=== PATIENT | female | born 1965 | race Caucasian/White ===

== ENCOUNTER 2017-06-11 05:40 | Day surgery (SDC) | payer OTHER ==
[~2017-06-11] VITALS: Ht 170.2 cm; Wt 77.1 kg
[~2017-06-11 05:40] MED LIST: BUTALBIT-ACETA1 EACH PO; NORTRIPTYLINE H50 MG PO; PROPRANOLOL HCL40 MG PO; SERTRALINE HCL100 MG PO; SYNTHROID50 MCG PO; VENTOLIN HFA18 GM INH
--- NOTE | 2017-06-11 08:35 | NUR ---
06/11/17 0835 Lynda Calvo 0819 PT REACTIVE, MAINTAINING OWN AIRWAY ON 10L VIA MASK. PT REORIENTED TO PACU AND THEN BACK TO SLEEP. 0823 PT DENIES PAIN AND NAUSEA. O2 MASK REMOVED, O2 SAT 100%.
--- NOTE | 2017-06-11 09:10 | NUR ---
PT ARRIVES TO RM 5 FROM RECOVERY AWAKE, ALERT AND ORIENTED. PT FRIEND, HUBER, IN RM ON ARRIVAL. PT PROVIDED ICED WATER. VS OBTAINED. PT REPORTS FEELING THE URGE TO VOID. PT AMBULATES TO BR WITH RN ASSIST AND VOIDS 100 MLS RED URINE WITH NO PROBLEMS. PT TOLERATES PO WELL. SECOND CUP OF ICED WATER PROVIDED AND PUDDING. CALL LIGHT W/IN REACH. NO C/O'S AT THIS TIME.
[2017-06-11] MEDS ORDERED: CIPRO500 MG PO (09:29)
--- NOTE | 2017-06-11 10:19 | NUR ---
DC CRITERIA MET. PT AGREES SHE IS READY TO GO HOME. DC INSTRUCTIONS GIVEN IN PRESENCE OF PT AND FRIEND, HUBER. PT VERBALIZES AN UNDERSTANDING OF DC INSTRUCTIONS. ABX SCRIPT GIVEN TO PT. FRIEND RETRIEVES VEHICLE WHILE VOLUNTEER, LAKHWINDER TRANSPORTS PT FROM RM 5 VIA WHEELCHAIR.
--- NOTE | 2017-06-15 14:06 | OR ---
[facility] [address] [facility] [place], [place] [address] Signed DATE OF OPERATION: 06/11/2017 SURGEON: Aimee Ro MD PREOPERATIVE DIAGNOSIS: Severe overactive bladder. POSTOPERATIVE DIAGNOSIS: Severe overactive bladder. NAME OF PROCEDURES: 1. Urethral dilation with straight sounds, from 12-South Sudanese to 22-South Sudanese. 2. Diagnostic cystoscopy with Botox bladder injection, 100 units. ANESTHESIA: General. ESTIMATED BLOOD LOSS: None. COMPLICATIONS: None. SPECIMENS: None. DRAINS: None. INDICATIONS FOR PROCEDURE: Janay is a very pleasant 52-year-old female, who presented to my clinic approximately a month ago with complaints of severe urinary urgency, frequency, and bouts of urge incontinence that resulted in loss of significant amount of urine during each episode. She tried anticholinergic medications in the past, however, she could not tolerate medications due to severe dry mouth. On her last office visit, she was given information on Botox bladder injection and after discussion of the risks and benefits of the procedure, she has agreed to proceed with Botox injection of 100 units. OPERATIVE FINDINGS: 1. On cystoscopy, there was no evidence of any suspicious masses, lesions, or stones Electronically Signed By: AIMEE RO MD 06/15/17 1406 PATIENT NAME: JANAY ANDERSON OPERATIVE REPORT DATE OF : 65 REPORT #: [id number] PHYSICIAN: AIMEE RO MD PCP: RADHA CUBA PAC REPORT IS CONFIDENTIAL AND NOT TO BE RELEASED WITHOUT AUTHORIZATION [facility] [address] [place], [place] [address] Signed within the bladder. Bilateral ureteral orifices are in their normal anatomic location. 2. A total of 100 units of botulinum toxin was injected into the detrusor muscle of the bladder in approximately 20 mL of saline solution. The procedure was performed without difficulty. DESCRIPTION OF PROCEDURE: After informed consent was obtained, the patient was taken back to the operating room. She was transferred from [facility] to the operating room table, where general anesthesia was induced. She was placed in the dorsal lithotomy position and her genitalia prepped and draped in the standard sterile fashion. Examination of the urethral meatus revealed a diminutive urethra. Her urethra was dilated from 12-South Sudanese to 22-South Sudanese using a straight sounds without difficulty. Once dilation was completed, a rigid cystoscope was inserted through the urethra and into her bladder under direct visualization. Panendoscopic views of the bladder were then obtained. Please see the findings. Once I noted the location of the bilateral orifices, I initiated injection of the Botox and saline solution using a 3 mm [employer] needle. 0.5 mL aliquots were injected into the bladder wall a total of 22 times. I avoided the dome and trigone areas of the bladder per protocol. The injections were performed without difficulty. Once I completed the injections, I irrigated the patient's bladder and then drained the bladder via the rigid sheath. The procedure was then terminated. The patient tolerated the procedure well without any complication. She will now be transferred to the postanesthesia care unit in stable condition. DISPOSITION: I discussed the details of today's procedure with Janay's partner and answered all of her questions. She will be sent home with Cipro 500 mg p.o. b.i.d. for a total of 5 days. She will be placed to return to clinic in approximately 6 weeks to undergo her first postoperative evaluation. MD ASHVIN Garzon/JACIL /[id number] Copies: Electronically Signed By: AIMEE RO MD 06/15/17 1406 PATIENT NAME: JANAY ANDERSON OPERATIVE REPORT DATE OF : 65 REPORT #: [id number] PHYSICIAN: AIMEE RO MD PCP: RADHA CUBA PAC REPORT IS CONFIDENTIAL AND NOT TO BE RELEASED WITHOUT AUTHORIZATION [facility] [address] [place] [id number] Signed ~ Electronically Signed By: AIMEE RO MD 06/15/17 1406 PATIENT NAME: JANAY ANDERSON OPERATIVE REPORT DATE OF : 65 REPORT #: [id number] PHYSICIAN: AIMEE RO MD PCP: RADHA CUBA PAC REPORT IS CONFIDENTIAL AND NOT TO BE RELEASED WITHOUT AUTHORIZATION
== END 2017-06-11 10:15 | disposition home or self-care (01) ==
LOC: OPS 05:40 → DS 05:40 → OPS 06:45 → DS 10:45 → OPS 10:45
PROVIDERS: Urology
PROC: 3E0K8GC Introduction of Other Therapeutic Substance into Genitourinary Tract, Via Natural or Artificial Opening Endoscopic (ICD-10-PCS; principal; 2017-06-11 06:45)
DX: N32.81 Overactive bladder (principal); N39.46 Mixed incontinence; G89.29 Other chronic pain; M54.5 Low back pain; K21.9 Gastro-esophageal reflux disease without esophagitis; I10 Essential (primary) hypertension; M19.90 Unspecified osteoarthritis, unspecified site; E03.9 Hypothyroidism, unspecified; F32.9 Major depressive disorder, single episode, unspecified; G43.909 Migraine, unspecified, not intractable, without status migrainosus; Z88.1 Allergy status to other antibiotic agents; Z88.6 Allergy status to analgesic agent; Z88.8 Allergy status to other drugs, medicaments and biological substances; Z79.899 Other long term (current) drug therapy
CPT/HCPCS: 00910; J0330; J0585; J1100; J1956; J2250; J2405; J2704; J2765; J3010; J7120

== ENCOUNTER 2017-07-31 13:53 | Emergency (ER) | payer OTHER ==
[~2017-07-31] VITALS: Ht 170.2 cm; Wt 77.1 kg
[~2017-07-31 13:53] MED LIST changes: +CIPRO500 MG PO
== END 2017-07-31 15:20 | disposition home or self-care (01) ==
LOC: ED 13:53
PROC: 2W3DX1Z Immobilization of Left Lower Arm using Splint (ICD-10-PCS; principal; 2017-07-31)
DX: S02.2XXA Fracture of nasal bones, initial encounter for closed fracture (principal); S63.502A Unspecified sprain of left wrist, initial encounter; Z88.6 Allergy status to analgesic agent; Z88.1 Allergy status to other antibiotic agents; Z79.899 Other long term (current) drug therapy; W18.43XA Slipping, tripping and stumbling without falling due to stepping from one level to another, initial encounter; Y93.89 Activity, other specified; Y92.89 Other specified places as the place of occurrence of the external cause; Y99.0 Civilian activity done for income or pay
CPT/HCPCS: 29125; 70160; 73110; 99283

== ENCOUNTER 2018-04-08 06:00 | Day surgery (SDC) | payer OTHER ==
[~2018-04-08] VITALS: Ht 170.2 cm; Wt 79.4 kg
[~2018-04-08 06:00] MED LIST changes: +BUTALB-ACETAMI1 EACH PO; +MYRBETRIQ50 MG PO
--- NOTE | 2018-04-08 08:38 | NUR ---
04/08/18 0838 Mona,Lynda 0889 PT ARRIVED TO PACU WITH ORAL AIRWAY IN PLACE, RESP EVEN AND UNLABORED. PT NONAROUSABLE TO PAINFUL STIMULI.
--- NOTE | 2018-04-08 09:11 | NUR ---
PT IS AWAKE UPON RETURNING TO FROM PACU. SHE IS ABLE TO DRINK WATER WITHOUT N/V. SHE REPORTS FEELING LIKE SHE NEEDS TO USE THE RESTROOM. DC CRITERIA IS DISCUSSED WITH PT. CALL LIGHT WITHIN REACH. NO OTHER C/O'S AT THIS TIME. WILL REASSESS.
--- NOTE | 2018-04-08 09:20 | NUR ---
PT IS ASSISTED UP OUT OF BED TO THE RESTROOM. SHE AMBULATES HERSELF WITH STANDBY ASSIST. SHE IS ABLE TO VOID 75ML'S OF PINKISH YELLOW URINE. SHE IS ESCORTED BACK TO HER ROOM AND GIVEN MORE WATER AND JELLO.
--- NOTE | 2018-04-08 10:10 | NUR ---
PT'S SIGNIFICANT OTHER AT THE BEDSIDE. PT HAS NO C/O'S PAIN. SHE REPORTS NEEDING TO USE THE RESTROOM. SHE ABMULTAES HERSELF WITHOUT ASSITANCE. CALL LIGHT WITHIN REACH.
--- NOTE | 2018-04-08 10:27 | NUR ---
PT HAS MET ALL DC CRITERIA. SHE INDICATES THAT SHE WOULD LIKE TO GO HOME. SHE IS EDUCATED HOW TO BEST DRESS HERSELF. SHE OPENS HER CURTAIN WHEN READY. SHE IS GIVEN VERBAL DC INSTRUCTIONS, SHE AND HER SIGNIFICANT OTHER VERBALIZE UNDERSTANDING. SHE IS TAKEN TO THE VEHICLE VIA WC, WHERE SHE IS ABLE TO TRANSFER HERSELF TO THE VEHICLE.
--- NOTE | 2018-04-10 18:42 | OR ---
[facility] [address] [place], [place] [address] Signed DATE OF OPERATION: 04/08/2018 SURGEON: Aimee Ro MD PREOPERATIVE DIAGNOSIS: Severe overactive bladder. POSTOPERATIVE DIAGNOSIS: Severe overactive bladder. PROCEDURE PERFORMED: Diagnostic cystoscopy with Botox bladder injection, 200 units. ANESTHESIA: MAC. ESTIMATED BLOOD LOSS: Minimal. COMPLICATIONS: None. SPECIMENS: None. DRAINS: None. INDICATIONS FOR PROCEDURE: Ms. Anderson is a very pleasant 52-year-old female who is well known to me. She has a history of severe overactive bladder symptoms that have never responded to oral pharmacotherapy in the past. Around six months ago, she underwent cystoscopy with Botox bladder injection of 200 units and her symptoms responded quite nicely to this. She has experienced one urinary tract infection since injection of 200 units. Otherwise, she has not had any complaints. She presents today to undergo repeat therapy in the form of Botox bladder injection of 200 units. OPERATIVE FINDINGS: 1. On cystoscopy, there was no evidence of any suspicious masses, lesions, or stones. Bilateral ureteral orifices were in their normal anatomic location and effluxing clear Electronically Signed By: AIMEE RO MD 04/10/18 1842 PATIENT NAME: ODETTE ANDERSON OPERATIVE REPORT DATE OF : 65 REPORT #: [id number] PHYSICIAN: AIMEE RO MD PCP: RADHA CUBA PAC REPORT IS CONFIDENTIAL AND NOT TO BE RELEASED WITHOUT AUTHORIZATION [facility] [address] [facility] [place], [place] [address] Signed urine. 2. A total of 200 units of botulinum toxin was injected into the patient's bladder in 1 mL aliquots. The procedure was performed without difficulty, and there was no significant bleeding associated with injections. DESCRIPTION OF PROCEDURE: After informed consent was obtained, the patient was taken back to the operating room. She was transferred from the [facility] to the operating room table, where MAC anesthesia was induced. She was placed in the dorsal lithotomy position and her genitalia were prepped and draped in a standard sterile fashion. Using a 30-degree lens on a 22-1/2-Uzbek introducer, rigid cystoscope was inserted through urethra and into her bladder under direct visualization. Panendoscopic views of the bladder were then obtained including the lateral day, floor, dome, and trigone areas. Please see above findings. The [employer] injector was advanced through the cystoscope and into the patient's bladder. The needle was then brought to a 3 mm length. The injections were then performed, with 1 mL of reconstituted Botox being injected each time. The posterior and bilateral day of the patient's bladder were injected including areas just superior to the trigone. Overall, I avoided injections in both the trigone and dome areas of the bladder. The entire reconstitute solution of 200 units of botulinum toxin was injected. Once the procedure was completed, the patient's bladder was then drained and the cystoscope was removed. The procedure was terminated. The patient tolerated the procedure well without any complication. She will now be transferred to the postanesthesia care unit in stable condition. DISPOSITION: I discussed the details of today's procedure with the patient's partner and answered all of her questions. She will go home today with a few days of oral antibiotics for prophylaxis. She has been given the okay to return to work tomorrow without restriction. She will be scheduled to return to clinic in approximately 6-8 weeks for her first postoperative evaluation. MD ASHVIN Garzon/MODL /[id number] Electronically Signed By: AIMEE RO MD 04/10/18 1842 PATIENT NAME: ODETTE ANDERSON OPERATIVE REPORT DATE OF : 65 REPORT #: [id number] PHYSICIAN: AIMEE RO MD PCP: RADHA CUBA PAC REPORT IS CONFIDENTIAL AND NOT TO BE RELEASED WITHOUT AUTHORIZATION [facility] [address] [place] [id number] Signed Copies: ~ Electronically Signed By: AIMEE RO MD 04/10/18 1842 PATIENT NAME: ODETTE ANDERSON OPERATIVE REPORT DATE OF : 65 REPORT #: [id number] PHYSICIAN: AIMEE RO MD PCP: RADHA CUBA PAC REPORT IS CONFIDENTIAL AND NOT TO BE RELEASED WITHOUT AUTHORIZATION
== END 2018-04-08 10:20 | disposition home or self-care (01) ==
LOC: DS 06:00 → OPS 06:00 → DS 06:45 → OPS 06:45
PROVIDERS: Urology
PROC: 3E0K8GC Introduction of Other Therapeutic Substance into Genitourinary Tract, Via Natural or Artificial Opening Endoscopic (ICD-10-PCS; principal; 2018-04-08 06:45)
DX: N32.81 Overactive bladder (principal); F32.9 Major depressive disorder, single episode, unspecified; E03.9 Hypothyroidism, unspecified; G43.909 Migraine, unspecified, not intractable, without status migrainosus; M48.9 Spondylopathy, unspecified; Z88.1 Allergy status to other antibiotic agents; Z88.6 Allergy status to analgesic agent; Z98.890 Other specified postprocedural states; Z79.899 Other long term (current) drug therapy
CPT/HCPCS: 00910; J0585; J1100; J1956; J2250; J2405; J3010; J7120

== ENCOUNTER 2020-07-22 18:12 | Emergency (ER) | payer OTHER ==
[~2020-07-22] VITALS: Ht 170.2 cm; Wt 79.4 kg
[~2020-07-22 18:12] MED LIST changes: +SUDAFED 12-HOU120 MG PO
[2020-07-22] MEDS ORDERED: HYDROCODON-ACE1 EA10 PO (20:08)
== END 2020-07-22 20:28 | disposition home or self-care (01) ==
LOC: ED 18:12
DX: S40.212A Abrasion of left shoulder, initial encounter (principal); S50.312A Abrasion of left elbow, initial encounter; V29.9XXA Motorcycle rider (driver) (passenger) injured in unspecified traffic accident, initial encounter; Z88.6 Allergy status to analgesic agent; Z88.1 Allergy status to other antibiotic agents; Z88.8 Allergy status to other drugs, medicaments and biological substances; Z79.899 Other long term (current) drug therapy
CPT/HCPCS: 70450; 73030; 73060; 73080; 73090; 73590; 73660; 90471; 90715; 99284-25

== ENCOUNTER 2020-11-17 10:06 | Inpatient (IN) | payer OTHER ==
[~2020-11-17] VITALS: Ht 170.2 cm; Wt 71.6 kg
[~2020-11-17 10:06] MED LIST changes: +HYDROCODON-ACE1 EA10 PO
--- NOTE | 2020-11-17 19:35 | NUR ---
pt here to the floor from ER, in to get vitals, pt able to scoot over to the bed, ice pack refreshed and ice water provided, no further needs at this time
--- NOTE | 2020-11-17 20:52 | NUR ---
PATIENT ASSESSMENT COMPLETE. LR AT 1,000ML/HR STARTED PER ORDER, BUT PATIENT GOT NAUSEATED, IS IN THE ROOM AND V.O. GIVEN TO DROP THE IV RATE TO 250ML/HR. THIS WAS DONE. PATIENT'S CALL LIGHT IS IN REACH AND AT BEDSIDE.
--- NOTE | 2020-11-17 22:16 | NUR ---
PATIENT RESTING QUIETLY NO ON HER LEFT SIDE. NEW ICE WATER GIVEN AND PATIENT HAVING NO NAUSEA OR PAIN AT THIS TIME. PATIENT HAD NO CARE NEEDS AND CALL LIGHT IS IN REACH.
--- NOTE | 2020-11-18 01:30 | NUR ---
DR. SHELL WAS CALLED FOR PATIENT [id number] ORAL AND PATIENT IS ALSO GETTING A HEADACHE. PATIENT IS ALLERGIC TO NSAIDS AND HAS ELEVATED LIVER ENZYMES SO NO TYLENOL AT THIS TIME. SAYS,"SHE REPORTS HAVING FEVERS BEFORE AND SHE IS ALLERGIC TO THE NSAIDS AND CAN'T HAVE TYLENOL, SO HER FEVERS ARE WHAT THEY ARE. ALL YOU CAN DO IS GET A COLD CLOTH FOR HER HEAD." I ASKED IF HE WANTED BLOOD CULTURES AND HE SAID,"NO". COOL CLOTH GIVEN TO PATIENT AND ICE WATER REFILLED. WILL CONTINUE TO MONITOR. CALL LIGHT IS IN REACH.
--- NOTE | 2020-11-18 02:00 | NUR ---
PT CALLED TO USE BATHROOM. FOUND PT SITTING UP ON SIDE OF BED, SIDE RAIL UP, LEFT LEG SNUG AGAINST THE SIDE RAIL. PT ABLE TO MOVE LEGS SO S/R COULD BE PUT DOWN. INDEPENDENTLY ABLE TO GET UP TO THE BEDSIDE COMMODE. O2 IN PLACE. MOANING/WHINY SOUND OF MOAN THE ENTIRE TIME RN IN ROOM. WIPES GIVEN TO PT TO CLEAN SELF, SOB WHEN UP, BACK TO BED, ENCOURAGED PT TO LAY ON HER SIDE, WHICH SHE TURNED TO THE RIGHT SIDE. DID DRINK SOME WATER. COVERED WITH MANY LAYERS OF BLANKETS, CALL LIGHT WITHIN REACH, LIGHTS OUT PER CHOICE.
--- NOTE | 2020-11-18 02:58 | NUR ---
PATIENT CALLED HAVING NAUSEA AND WANTING SOMETHING FOR A HEADACHE FOR NOW. PATIENT GIVEN 12.5MG IV PHENERGAN IN MLS NS OVER 10MINUTES. INFORMED PATIENT I HAD PREVIOUSLY THAT I CALLED AND THERE WAS NOTHING AVAILABLE FOR HER HEADACHE AT THIS TIME, AND THAT HOPEFULLY THE PHENERGAN WOULD GET RID OF HER NAUSEA AND ALLOW HER TO SLEEP. PATIENT SEEMED TO BE GOING TO SLEEP AND DID NOT ANSWER THIS RN. LIGHTS TURNED DOWN. CALL LIGHT IS IN REACH.
--- NOTE | 2020-11-18 03:44 | NUR ---
PATIENT NODS HER HEAD SHE IS FEELING MUCH BETTER NOW. PATIENT HAS NO OTHER NEEDS AT THIS TIME. CALL LIGHT IS IN REACH.
--- NOTE | 2020-11-18 05:32 | NUR ---
PATIENT'S NAUSEA STILL CONTROLLED. AM ASSESSMENT, VS, AND I+O COMPLETE. PATIENT DOES NOT WANT TO TAKE HER THYROID MEDICATION AT THIS TIME. LAB HAS JUST ARRIVED FOR THE AM LAB DRAW. CALL LIGHT IS IN REACH.
--- NOTE | 2020-11-18 07:45 | NUR ---
REPORT RECEIVED FROM NIGHT RN AND PT. CARE RESUMED. PT. IS DROWSY BUT ORIENTED. O2 2L NC AND O2 SAT. IS 91%. PT. REPORTS MIGRAINE/HEADACHE PAIN. PT. REFUSED TO SIT IN THE CHAIR AT THIS TIME. IV SITE WNL AND IVF RUNNING. RUQ OF ABDOMEN TENDER. DISUSSED MEDS, POC. PT. LEFT RESTING WITH CALL LIGHT IN REACH.
[2020-11-18] MEDS ORDERED: FLOVENT HFA12 GM INH (07:55)
--- NOTE | 2020-11-18 09:28 | NUR ---
IV pump alarming. Patient requests IV site change as AC site is uncomfortable and causes pump to alarm frequently. IV started to Right hand after failed attempt to left hand. Tolerated well. Requesting elba. Eulogio called by this nurse and requested clear liquid tray.
--- NOTE | 2020-11-18 10:29 | NUR ---
ROUNDING ON PT. SHE IS LYING FLAT ON BACK IN BED. ENCOURAGED TO SIT UP BUT REFUSES AND STATES IT CAUSES HER TO BE MORE NAUSEOUS. REFUSES ANTIEMETIC MED. ENCOURAGED PT. TO USE I.S. BUT SHE REFUSES AT THIS TIME. PT. LEFT RESTING WITH CALL LIGHT IN REACH.
--- NOTE | 2020-11-18 12:36 | NUR ---
MED REC COMPLETE
--- NOTE | 2020-11-18 13:00 | NUR ---
Pt resides in [place] in a 1 story house with friend, Emely. Pt does not use any DME. Pt works at the [employer] in [place]. States she is active and in good health most times. Pt has been ill since last weekend. Pt. Plans on dc to home with assist from Emely. May need 02 on dc and would like [facility]stable.
--- NOTE | 2020-11-18 13:54 | NUR ---
PT. ALERT AND ORIENTED WITH PARTNER AT BEDSIDE. PT. STILL LYING FLAT ON HER BACK AND DOES NOT WANT TO SIT UP BECAUSE SHE IS AFRAID IT WILL MAKE HER NAUSEOUS BUT REFUSES ANTIEMETIC MEDS. PT. EDUCATED ABOUT I.S. AND DEMONSTRATED USE. DISCUSSED DEEP BREATHING ALTERNATING POSITION AND USING I.S. NEW BAG OF IVF STARTED. PT. LEFT RESTING WITH CALL LIGHT IN REACH.
--- NOTE | 2020-11-18 15:17 | NUR ---
PT USED CALL LIGHT APPROPRIATELY TO REPORT RASH ON BOTH ARMS. IT IS NOT ON ABDOMEN OR BACK. PT. DENIES ITCHINESS. DENIES SOB. WILL NOTIFY .
--- NOTE | 2020-11-18 19:30 | NUR ---
REPORT RECIVED FROM DENNISE PATEL. PATIENT APPEARS TO BE RESTING ON STRETCHER. PATIENT WILL NEED TO BE ENCOURAGED TO USE HER I.S. WELL AMBULATE TO BATHROOM RATHER THAN JUST STAY IN BED.
--- NOTE | 2020-11-18 21:35 | NUR ---
CHECKED ON PATIENT, INFORMED WE WILL BE HANGING MORE ANTIBIOTICS. WILL BE AROUND TO HER ROOM AT 2200. SHE IS RESTING ON STRETCHER.
--- NOTE | 2020-11-18 23:22 | NUR ---
Patient resting in bed, eyes closed, respirations even and non labored. Personal supplies and call light within reach of patient.
--- NOTE | 2020-11-19 02:32 | NUR ---
PT NEEDING TO VOID, ATTEMPTED TO ENCOURAGE TO TP WALK TO THE TOILET, PT DECLINED, WISHED TO USE BSC, PT VOIDED 425 MLS, BACK TO BED, NO FURTHER NEEDS AT THIS TIME
--- NOTE | 2020-11-19 03:56 | NUR ---
PATIENT INTERIOR DESIGN PRINCIPAL LIGHT HAS ASKED FOR SOME PAIN MED FOR HER HEADACHE. LAWRENCE PATEL IN ROOM TO MEDICATE PATIENT WITH OXYCODONE, SEE EMAR.
--- NOTE | 2020-11-19 06:45 | NUR ---
PATIENT HAS BEEN RESTING MOST OF THE NIGHT, WAS PROVIDED JELLO AND PUDDING DID NOT EAT MUCH. HAS DRANK SOME ORAL FLUIDS. CONTINUES TO RECEIVE ZOSYN IV. PATIENT HAD VOID DURING THE NIGHT. TREATED HER HEADACHE WITH OXYCODONE, HAS IMPROVED.
--- NOTE | 2020-11-19 09:00 | NUR ---
REPORT RECEIVED FROM NIGHT RN AND PT CARE RESUMED. PT. IS ALERT AND ORIENTED. SHE REPORTS A SORE THROAT AND HEADACHE. OXYCODONE ADMIN. LLL AND RON COARSE THROUGHOUT. PT. HAS A DRY COUGH. ENCOURAGED HER TO SIT UP AND USE I.S. PT. REFUSES AT THIS TIME. EDUCATED ON RISKS OF LYING IN BED WITH PNEUMONIA. PT. AGREED TO SIT UP IN THE CHAIR FOR LUNCH. IV SITE WNL AND FLUSHES WELL. DISCUSSED POC AND MEDS. PT. LEFT RESTING WITH CALL LIGHT IN REACH.
--- NOTE | 2020-11-19 12:30 | NUR ---
PT. REPORTED IV SITE INFUSING WITH ABX IS PAINFUL. FLUSHES WELL AND APPEARS WNL. JORGE PATIÑO RUNNING FLUIDS AND ABX CONCURRENTLY AND PT. REPORTS NO LONGER PAINFUL. WILL CONTINUE TO MONITOR
--- NOTE | 2020-11-19 19:15 | NUR ---
SHIFT REPORT RECEIVED FROM DAYSHIFT JORGE BOWDEN AT BEDSIDE. pt AWAKE AND RESTING IN BED, 2LNC IN PLACE. IV FLUIDS INFUSING, SITE WNL. BOARD UPDATED, NO NEEDS AT THIS TIME. CALL LIGHT IN REACH.
--- NOTE | 2020-11-19 21:55 | NUR ---
ASSESSMENT COMPLETE, SCHEDULED MEDS GIVEN (SEE EMAR). pt A/OX4, RESTING IN BED. VERBALIZED SHE USED THE IS WITH RT, BUT "DIDN'T REACH VERY FAR". pt EDUCATED TO USE 10X/HR WHEN AWAKE TO HELP IMPROVE AIRWAY, pt VERBALIZES UNDERSTANDING. pt QUIET IN APPEARANCE, BUT FOLLOWS INSTRUCTIONS. VSS, 2LNC IN PLACE. pt DENIES PAIN AND NAUSEA. NO FURTHER NEEDS, CALL LIGHT IN REACH. IV ABX INFUSING PER MD ORDERS, SITE WNL.
--- NOTE | 2020-11-19 22:30 | NUR ---
INFOMRED BY JORGE PERALTA pt FOUND IN BED WITH APPROX 100MLS EMESIS, YELLOW IN COLOR, NO PILLS NOTED. PRN ZOFRAN GIVEN, SEE EMAR. COOL RAG TO FORHEAD, pt DENIES FURTHER NEEDS. WILL MONITOR. CALL LIGHT IN REACH.
--- NOTE | 2020-11-19 23:34 | NUR ---
ROUNDED ON pt, pt RESTING QUIETLY IN BED, EYES CLOSED. 2LNC IN PLACE, pt VERBALIZES NAUSEA HAS IMPROVED, WILL CONTINUE TO MONITOR. CALL LIGHT IN REACH.
--- NOTE | 2020-11-20 00:57 | NUR ---
CALL LIGHT ANSWERED. pt UP TO VOID VIA BSC, 700MLS OUTPUT NOTED. IV BEEPING, ISSUE RESOLVED. pt REPORTS NAUSEA IMPROVED AND STATES GETTING UP TO VOID "MADE IT BETTER". DENIES NEED FOR ADDITIONAL NAUSEA MEDS AT THIS TIME, WILL MONITOR. CALL LIGHT IN REACH.
--- NOTE | 2020-11-20 03:49 | NUR ---
CALL LIGHT ANSWERED, pt FOUND RESTING IN BED, DROWSY. 2LNC REMOVED FROM FACE, SPO2 80'S. pt TITRATED TO 3LNC, NOW SUSTAINING ABOVE 90%. pt REPORTS PAIN REQUESTING PAIN MEDICATION AND STATES, "I FEEL QUEASY". pt REPORTS THAT SHE FEEL NAUSEOUS. PRN NAUSEA MEDICATION, SEE EMAR. IV SITE WNL, BRISK BLOOD RETURN NOTED. pt RESTING IN BED, WILL MONITOR. CALL LIGHT IN REACH.
--- NOTE | 2020-11-20 05:47 | NUR ---
scheduled iv abx and thyroid med given, see emar. pt denies nausea. iv site remains wnl. lab unable to collect blood, float kanika grande in room and at bedside to attempt lab draw. no further needs, call light in reach.
--- NOTE | 2020-11-20 08:00 | NUR ---
REPORT RECEIVED FROM NIGHT RN AND PT. CARE RESUMED. PT. WHEN RECEIVING BEDSIDE REPORT, 02 SAT WAS 87%. O2 WAS 3.5L NC. PT. ENCOURAGED TO DEEP BREATH, DEMONSTRATED I.S. AND POSITIONED ON SIDE. O2 SAT INCREASED TO 90%. PT. ASSISTED WITH AMBULATING TO CHAIR AND EDUCATED ABOUT SITTING UP AND DEEP BREATHING. LEFT LUNG DIM. THROUGHOUT. IV SITE WNL. PT. LEFT RESTING WITH CALL LIGHT IN REACH.
--- NOTE | 2020-11-20 12:53 | NUR ---
PATIENT TOOK A SHOWER BEFORE LUNCH. STOOD BY PATIENT WHILE WALKING INTO THE BATHROOM. HELPED HER WASH HER BACK AND HER LEGS AND FEET. STOOD BY IN CASE SHE NEEDED ANY HELP. PATIENT IS SITTING UP IN HER CHAIR EATING HER LUNCH. SHE HAS A VISITOR VISITING HER.
--- NOTE | 2020-11-20 15:16 | NUR ---
PT. HAS TOLERATED BEING UP IN THE CHAIR ALL DAY. SHE DENIES PAIN AT THIS TIME. ON 4L NC AND O2 SAT WAS 99%. TITRATED TO 2L. PT. APPEARS MORE MOTIVATED TODAY. PARTNER AT CHAIR SIDE AND SHE IS USING I.S. LEFT LUNG THROUGHOUT IS DIM. PT. LEFT RESTING WITH CALL LIGHT IN REACH.
--- NOTE | 2020-11-20 16:59 | NUR ---
THIS RN IN TO ASSESS PT. PT LAYING IN BED AT THIS TIME RESTING AWAKE AND ALERT ON 2L O2 NC. VITALS TAKEN AND THIS TIME. PT ASSESSED AT THIS TIME, PT REPORTS HAVING SOME NAUSEA AT THIS TIME WHEN ASKED, PRN ZOFRAN ADMINISTERED. PT DENIES HAVING ANY PAIN AT THIS TIME. PT ENCOURAGED TO COUGH AND DEEP BREATH AND USE ASSISTIVE DEVICES. PT REPORTS NO FURTHER NEEDS AT THIS TIME WHEN ASKED, WILL CONTINUE PLAN OF CARE. CALL LIGHT IN REACH, BED IN LOWEST POSITION, IVF INFUSING ORDERED.
--- NOTE | 2020-11-20 19:50 | NUR ---
REPORT RECEIVED FROM YANG PATEL. PATIENT HAS BEEN UP TO CHAIR TO EAT MEALS TODAY NEEDS ENCOURAGED TO USE IS AND GET UP DUE TO XRAY SHOWING POSSIBLE WORSENING PNEUMONIA.
--- NOTE | 2020-11-20 20:53 | NUR ---
SUPERVISOR EDUCATION ROUNDING NOTE. PT UTILIZES CALL LIGHT, REQUESTS TO USE THE BATHROOM. PT UP TO EDGE OF BED, SITS FOR LONG TIME. STATES THAT SHE WOULD LIKE TO ATTEMPT TO WALK TO BATHROOM THAT IT "JUST TAKES ME A LONG TIME." PT WITH DRY COUGH NOTED. PT WALKS TO BATHROOM WITH SBA AND FWW. TOLERATED WELL. BED STRAIGHTEN AND ROOM PICKED UP. WHITE BOARD UPDATED. PRIMARY RN'S IN ROOM THIS FILE CLERK DATA ENTRY EXITS.
--- NOTE | 2020-11-20 21:13 | NUR ---
IN ROOM TO DO VITALS AND PATIENT ASSESSMENT. SHE HAS HAD A SEMI SOFT SMALL BM ALONG WITH HER VOID IN HAT. PATIENT WAS ABLE TO AMBULATE TO TOILET ON HER O2. PATIENT DENIES PAIN OR NAUSEA AT THIS TIME. NIGHTTIME MEDS GIVEN SEE EMAR. CALL LIGHT IN REACH.
--- NOTE | 2020-11-20 21:26 | NUR ---
CALL LIGHT ON. pt REQUESTED A WARM BLANKET. PROVIDED, NO FURTHER REQUESTS. CALL LIGHT WITHIN REACH.
--- NOTE | 2020-11-20 21:40 | NUR ---
PATIENT'S TEMP IS 102.7 ORAL, HR 111, PATIENT SWEATING STATING "THINK MY FEVER MIGHT BE A LITTLE BETTER I'M SWEATING" PATIENT MEDICATED WITH 400MG MOTRIN PO SEE EMAR. 1 LITER LR IV BOLUS DONE, VANCO AND MAINTENANCE FLUIS CONTINUE TO INFUSE. PATIENT DENIES NAUSEA OR PAIN AT THIS TIME. DRINKING WATER.
--- NOTE | 2020-11-20 23:08 | NUR ---
PATIENT IS RESTING ON BED, LATING ON HER BACK IN ALMOST FLAT POSITION, REMAINS ON 02. RESPIRATIONS EVEN AND UNLABORED. CALL LIGHT IN REACH.
--- NOTE | 2020-11-21 00:19 | NUR ---
PATIENT REMAINS WITH HER EYES CLOSED, LAYING SUPINE ON BED. RESPIRATIONS VISUALIZED EVEN AND UNLABORED. REMAINS ON O2 VIA NC AT 2 LITERS. CALL LIGHT IN REACH. ZOSYN CONTINUES INFUSING.
--- NOTE | 2020-11-21 02:03 | NUR ---
PATIENT ASLEEP AND MUMBLES TO SELF. HER ZOSYN IS COMPLETE LINE FLUSHED. PATIENT ASKED IF SHE NEEDED ANYTHING BUT ONLY STIRS, WILL LET PATIENT SLEEP. RESPIRATIONS EVEN AND UNLABORED. CALL LIGHT IN REACH. REMAINS ON O2 NC AT 2 LITERS.
--- NOTE | 2020-11-21 06:52 | NUR ---
Patient declined to get up to restroom to attempt to void. Patient states she does not needs to void at this time. Pt last voided yesterday at bedtime.
--- NOTE | 2020-11-21 07:29 | NUR ---
REPORT RECEIVED FROM NIGHTSHIFT RN, WILL CONTINUE PLAN OF CARE.
--- NOTE | 2020-11-21 09:01 | NUR ---
THIS RN IN TO ASSESS PT AND ADMINISTER SCHEDULED MEDICATION. PT LAYING IN BED AT THIS TIME AWAKE AND ALERT ON 2L O2 NC. VS TAKEN AND SCHEDULED MEDICATIONS ADMINISTERED AT THIS TIME ALONG WITH PRN ZOFRAN FOR NAUSEA (SEE MAR). PT DENIES HAVING ANY PAIN AT THIS TIME WHEN ASKED. PT ENCOURAGED TO USE I.S AND ACAPPELLA AT THIS TIME AND PT WAS ABLE TO USE BOTH INSTRUCTED. PT REPORTS NO FURTHER NEEDS AND STATES SHE WILL WORK ON HER BREAKFAST WHEN HER NAUSEA SUBSIDES. IV ABX INFUSING ORDERED, PT RESTING IN BED ON 2L O2 NC, PT ASSESSED DURING THIS TIME. WILL CONTINUE PLAN OF CARE. CALL LIGHT IN REACH, BED IN LOWEST POSITION.
--- NOTE | 2020-11-21 12:08 | NUR ---
PT WORKING WITH PHYSICAL THERAPIST AT THIS TIME AND WALKING AROUND HALLS WITH A FWW. WILL CONTINUE PLAN OF CARE.
--- NOTE | 2020-11-21 12:16 | NUR ---
THIS RN IN TO ADMINISTER SCHEDULED MEDICATION. PT SITTING AT BEDSIDE RECLINER, LAB IN TO DRAW BLOOD AT THIS TIME. PT AWAKE AND ALERT AT THIS TIME, PO MEDICATION ADMINISTERED (SEE MAR). PT REPORTS NO FURTHER NEEDS AT THIS TIME WHEN ASKED AND IS STILL RESTING ON THE BEDSIDE RECLINER ON 2L O2 NC, WILL CONTINUE PLAN OF CARE. CALL LIGHT IN REACH.
--- NOTE | 2020-11-21 13:55 | NUR ---
THIS RN IN TO ADMINISTER SCHEDULED IV ABX. PT LAYING IN BED AT THIS TIME AWAKE AND ALERT RESTING. IV ABX STARTED (SEE MAR) AT THIS TIME. PT REPORTS NO FURTHER NEEDS AT THIS TIME WHEN ASKED AND IS STILL IN BED RESTING ON 2L O2 NC. WILL CONTINUE PLAN OF CARE. CALL LIGHT IN REACH, BED IN LOWEST POSITION, IV ABX INFUSING.
--- NOTE | 2020-11-21 14:45 | NUR ---
THIS RN IN TO CHECK ON PT. PT LAYING IN BED ON HER SIDE SLEEPING AT THIS TIME, IV ABX INFUSING. RESPIRATIONS NOTED, PT IN NO APPARENT DISTRESS AND WAS LEFT UNDISTURBED AT THIS TIME. WILL CONTINUE PLAN OF CARE. CALL LIGHT IN REACH, BED IN LOWEST POSITION.
--- NOTE | 2020-11-21 16:20 | NUR ---
THIS RN IN TO START A NEW IV LEFT IV INFILTRATED. PT LAYING IN BED AWAKE AND ALERT WITH A WARMPACK OVER HER IV SITE. IV SITED NOTED TO BE WARM AND SLIGHTLY PINK/RED. PT STATES THE PAIN IS TOLERABLE WHEN ASKED. BOTH IV'S DC'D AT THIS TIME ONE WAS INFILTRATED AND THE OTHER WAS PAINFUL WHEN FLUSHING. BOTH IV'S INTACT AND PT TOLERATED REMOVAL WELL. NEW 22G IV PLACED IN R WRIST PER PROTOCOL. IV ABX NOW INFUSING INTO IV. PT WAS THEN ASSESSED AT THIS TIME. PT REPORTS NO FURTHER NEEDS WHEN ASKED AND IS NOW BACK IN BED RESTING, IV ABX INFUSING, WILL CONTINUE PLAN OF CARE. CALL LIGHT IN REACH, BED IN LOWEST POSITION.
--- NOTE | 2020-11-21 19:21 | NUR ---
REPORT RECEIVED FROM YANG PATEL. PATIENT REPORTED TO HAVE A "BETTER TODAY TODAY" PATIENT HAS BEEN UP IN ROOM AMBULATING WITH PT, PATIENT HAS HAD OFF AND ON NAUSEA WHICH RESOLVEED WITH PHENRGAN. PATIENT HAS EATEN AND VOIDED TODAY. O2 TITRATED TO 1 LITER SATS ARE IN MID 90'S. CHECKED ON PATIENT SHE IS RESTING ON BED, DENINES NEEDS AT THIS WATCHING TV. INFORMED PATIENT I WILL BE IN TO DO HER ASSESSMENT LATER. CALL LIGHT IN REACH.
--- NOTE | 2020-11-21 20:37 | NUR ---
IN ROOM TO GIVE PATIENT HER NIGHT TIME MEDS, SEE EMAR. PATIENT IS ON 1 LITER NC, SATS ARE 94%, OTHER VITALS OBTAINED. PATIENT DRANK ALMOST WHOLE CUP OF WATER WITH HER MEDS. DENIES NEEDING TO GET UP TO VOID AT THIS TIME, "MAYBE LATER" INFORMED PATIENT I WILL COMING BACK AROUND 10 PM TO START HER IV ANTIBIOTIC. DENIES NAUSEA AND PAIN, DENIES ANY NEEDS WHEN ASKE. CALL LIGHT IN REACH.
--- NOTE | 2020-11-21 22:43 | NUR ---
CHECKED ON PATIENT, SHE APPEARS TO BE SLEEPING, ROOM DARKENED AND HER EYES ARE CLOSED, RESPIRATIONS APPEAR EVEN AND UNLABORED, PATIENT LYING ON HER LEFT SIDE, ZOSYN INFUSING, SITE INSPECTED WITH SMALL LIGHT, NO SWELLING OR REDNESS NOTED.
--- NOTE | 2020-11-21 23:43 | NUR ---
WENT TO CHECK IN ON PATIENT. SHE IS ASLEEP CAN BE HEARD SNORING, SHE IS LAYING ON HER BACK IN BED WITH HEAD OF BED SLIGHTLY ELEVATED, STILL HAS NASAL CANNULA ON AT 1 LITER. ZOSYN CONTINUES INFUSING, SITE CHECKED WITH A LIGHT, NO SWELLING OR REDNESS NOTED. CALL LIGHT IN REACH.
--- NOTE | 2020-11-22 02:23 | NUR ---
PATIENT IS RESTING ON HER LEFT SIDE IN THE BED, RISE AND FALL OF CHEST VISUALIZED. CALL LIGHT IN REACH. APPEARS PATIENT HAS DRANK SOME WATER IN THE PAST FEW HOURS, HAS NOT BEEN UP TO VOID.
--- NOTE | 2020-11-22 03:40 | NUR ---
PATIENT IS STILL ASLEEP. ATTEMPTED TO WAKE PATIENT UP SO SHE COULD GET UP TO VOID BUT PATIENT JUST KEPT INSISTING SHE DIDN'T NEED TO GO AND WANTED TO GO BACK TO SLEEP. PATIENT TOLD SHE WILL NEED TO TRY TO VOID THIS MORNING WHEN HER VITALS AND ASSESSMENT ARE DONE.
--- NOTE | 2020-11-22 06:00 | NUR ---
SBA TO THE BATHROOM AND BACK TO BED. NO OTHER NEEDS AT THIS TIME.
--- NOTE | 2020-11-22 06:15 | NUR ---
PATIENT HAS BEEN ASLEEP MOST OF NIGHT. SUPPOSED TO HAVE MRI THIS MORNING. RECEIVED HER ZOSYN LAST NIGHT AND INFUSING THIS MORNING'S DOSE. PATIENT WAS UP TO TOILET AMBULATING SELF VOIDED 600 ML. REMAINS ON 1 LITER SATS LOW TO MID 90'S.
--- NOTE | 2020-11-22 07:39 | NUR ---
PT RESTING EYES CLOSED AT TIME OF SHIFT EXCHANGE, LEFT UNDISTURBED. [address], CALL LIGHT IN REACH.
--- NOTE | 2020-11-22 09:10 | NUR ---
PT AWAKENS FOR MORNING MEAL APPEARS SLEEPY, SLOW MOVING, UNENTHUSIASTIC. REMINDED PT OF NEED TO USE I/S AND DO LUNG EXERCIZES OUTLINED ON THE READER BOARD. TOLERATES 100 % OF MORNING MEAL REFUSES UP TO THE CHAIR
--- NOTE | 2020-11-22 09:20 | NUR ---
PT COMPLETES 100% OF MORNINGB MEAL, CONTINUES IN BED. C/O A MIGRAIN STARTING AND SLIGHT NAUSEA. ZOFRAN AND OPXY ADMINISTERED.
--- NOTE | 2020-11-22 09:32 | NUR ---
PATIENT WAS IN BED, PATIENT HAD NOT GOTTEN UP TO USE THE REST ROOM, PATIENT WAS ENCOURAGED TO DO BREATHING EXERCISES, PATIENT WILL GO AN A WALK WITH THIS CNA2 THIS AFTERNOON, NURSE CHARTED VITAL SIGNS, NOTHING ELSE TO REPORT AT THIS TIME
--- NOTE | 2020-11-22 11:25 | NUR ---
REPORT RECEIVED FROM JORGE SCALES. PT APPEARS TO BE RESTING WIETH EYES CLOSED.
--- NOTE | 2020-11-22 13:22 | NUR ---
PT appeared to be sleeping. Offered prayer from hallway and did not disturb.
--- NOTE | 2020-11-22 14:22 | NUR ---
IN ROOM FOR SCHEDULED MEDS AND ASSESSMENT. PT AND FRIEND SITTING UP IN CHAIRS TALKING. PT PLEASANT AND COOPERATIVE ATT. HOOKED UP TO IV FOR AB. OT IN ROOM FOR THERAPY.
--- NOTE | 2020-11-22 19:48 | NUR ---
REPORT RECEIVED FROM DAY SHIFT RN. PT LYING IN BED ALERT AND ORIENTED. REPORTS 8/10 HEADACHE PAIN. PRN FOR PAIN ADMINISTERED PER EMAR. ICE PACK PROVIDED. NO FURTHER NEEDS. WHITE BOARD UPDATED. CALL LIGHT IN REACH.
--- NOTE | 2020-11-22 22:15 | NUR ---
EVENING ASSESSMENT COMPLETE. SCHEDULED MEDS ADMINISTERED PER EMAR. PT REPORTS JEONG PAIN MUCH IMPROVED. DENIES PRN FOR PAIN AT THIS TIME. DENIES NAUSEA OR SOB. 1L/NC IN PLACE. RESPIRATIONS EVEN. IV ABX INFUSING WNL. PT DENIES QUESTIONS OR CONCERNS. CALL LIGHT IN REACH.
--- NOTE | 2020-11-23 00:30 | NUR ---
PT LYING ON BACK RESTING WITH EYES CLOSED. NO APPARENT DISTRESS. 1L/NC IN PLACE. IV ABX INFUSING WNL. CALL LIGHT IN REACH.
--- NOTE | 2020-11-23 02:13 | NUR ---
PT RESTING IN BED WITH EYES CLOSED, NAD. RESPIRATIONS EVEN. CALL LIGHT IN REACH.
--- NOTE | 2020-11-23 04:53 | NUR ---
PT CALLED, IV ALARMING. SL, ABX COMPLETE. NO OTHER NEEDS AT THIS TIME.
--- NOTE | 2020-11-23 06:15 | NUR ---
IV ABX INFUSING WNL. PT DENIES PAIN OR NAUSEA. 1L/NC IN PLACE. DENIES SOB. PT DENIES FURTHER NEEDS. CALL LIGHT IN REACH.
--- NOTE | 2020-11-23 07:47 | NUR ---
PT WAS ASLEEP IN BED. WHITEBOARD WAS UPDATED. CALL LIGHT IS WITH REACH. WILL CHECK BACK IN LATER WHEN PT IS AWAKE.
--- NOTE | 2020-11-23 07:47 | NUR ---
MORNING ASSESSMENT DONE. PATIENT IS ON ROOM AIR WITH SATS BETWEEN 90-92% AND IS SLEEPING. BREAKFAST IN ROOM, PATIENT REFUSED TO GET UP TO CHAIR FOR BREAKFAST AND PLANS TO EAT IN BED. PATIENT DENIES PAIN OR NAUSEA AT THIS TIME.
--- NOTE | 2020-11-23 09:16 | NUR ---
MORNING MEDICATIONS GIVEN. O2 SATS RECHECKED AND 88-89% SO 1L [address] PEACOCK IN TO SEE PATIENT, DISCUSS POSSIBLE DISCHARGE TO HOME TODAY. PLANNING FOR O2 HOME QUALIFIER.
--- NOTE | 2020-11-23 09:21 | NUR ---
PATIENT IS 94% ON 1L O2
--- NOTE | 2020-11-23 09:57 | NUR ---
RESPIRATORY THERAPY IN TO DO HOME O2 QUALIFIER.
--- NOTE | 2020-11-23 10:00 | NUR ---
Spoke with Janay. She denies needs for dc. Plans on dc to home today. Emely, SO, will be with her at home. 02 qualifier showed no need for 02 at home.
--- NOTE | 2020-11-23 10:18 | NUR ---
PHYSICAL THERAPY IN TO WORK WITH PATIENT, AMBULATE IN HALLWAY.
[2020-11-23] MEDS ORDERED: AUGMENTIN 875-1 EACH PO (11:54)
--- NOTE | 2020-11-23 12:41 | NUR ---
PATIENT GIVEN DISCHARGE INSTRUCTIONS, HELPED PACKING UP ROOM. PATIENT IS CALLING HER FRIEND TO TRANSPORT HER HOME. VITALS ARE STABLE. RIGHT WRIST IV D/C'D WITH CATHETER INTACT. PATIENT WILL CALL WHEN READY FOR WHEELCHAIR RIDE TO FRONT.
--- NOTE | 2020-11-23 13:07 | NUR ---
DISCUSSED WITH PATIENT ABOUT DISCHARGE PLAN. THE PATIENT DOES NOT HAVE ANY CONCERNS AT THIS TIME. PATIENT DOES NOT FEEL LIKE SHE NEEDS ANY ASSISTIVE DEVICES. WAS PRESENT DURING THIS CONVERSTATION AND HAD NO QUESTIONS. CASE MANGEMENT WILL CONTINUE TO FOLLOW.
== END 2020-11-23 13:05 | disposition home or self-care (01) | DRG 193 ==
LOC: ED 10:06 → MS 10:08
PROVIDERS: ADMIT Student in an Organized Health Care Education/Training Program; ATTEND Student in an Organized Health Care Education/Training Program
DX: J18.9 Pneumonia, unspecified organism (principal); J96.01 Acute respiratory failure with hypoxia; K75.2 Nonspecific reactive hepatitis; E03.9 Hypothyroidism, unspecified; Z20.822 Contact with and (suspected) exposure to COVID-19; G43.909 Migraine, unspecified, not intractable, without status migrainosus; F39 Unspecified mood [affective] disorder; Z88.6 Allergy status to analgesic agent; Z88.1 Allergy status to other antibiotic agents; Z79.899 Other long term (current) drug therapy
CPT/HCPCS: 71046; 71260; 74177; 76705; 80053; 81001; 83690; 83735; 84443; 84703; 85025; 85610; 87040; 94640; 94667; 94668; 94760; 94761; 97110; 97116; 97162; 97530; C9803; G0378; G0480; J1170; J1650; J1956; J2405; J2543; J2550; J7030; J7121; Q9967; U0003

== ENCOUNTER 2023-07-31 08:17 | Day surgery (SDC) | payer OTHER ==
[~2023-07-31] VITALS: Ht 167.6 cm; Wt 63.7 kg
[~2023-07-31 08:17] MED LIST changes: +ALIGN4 MG PO; +AUGMENTIN 875-1 EACH PO; +FLOVENT HFA12 GM INH; +FLUTICASONE PRO12 GM INH; +IBLOOD GLUCOSE TEST STRIP 1 EA TEST VI PRN; +LACTATED RINGER'S 1,000 ML IV SCH; +LIDOCAINE HCL 1% 5 ML SDV INJ ONE; +MIDAZOLAM HCL 5 MG/5 ML VIAL IV PRN; +fentaNYL citrate 100 MCG/2 ML VIAL IV PRN
[2023-07-31 08:36] VITALS: BP 124/68
[2023-07-31] MEDS ORDERED: MIDAZOLAM HCL 5 MG/5 ML VIAL ONE (08:38)
[2023-07-31] MEDS ORDERED: fentaNYL citrate 100 MCG/2 ML VIAL ONE (08:39)
--- NOTE | 2023-07-31 09:31 | NUR ---
07/31/23 0931 Sheela Perla 0924-PATIENT ARRIVED TO PACU ON 2L NC RR EVEN. PATIENT LAYING LEFT LATERAL ABDOMEN SOFT. IVF INFUSING. PATIENT REACTIVE TO VERBAL STIMULI REMAINS VERY DROWSY AND DOZES BACK TO SLEEP. 0930-PATIENT SLEEPING 2L NC RR EVEN 100% AROUSES TO VERBAL STIMULI DENIES PAIN OR NAUSEA. DOZES BACK TO SLEEP.
--- NOTE | 2023-07-31 10:05 | NUR ---
IN PT ROOM D/T CALL LIGHT ANSWERED. PT STATES SHE IS READY TO GO HOME AND FEELING MORE AWAKE AT THIS TIME. PT REPORTS NO DIZZINESS, NAUSEA, OR PAIN AT THIS TIME. PT NOW GETTING DRESSED, AT BEDSIDE ASSISTING. CALL LIGHT WITHIN REACH, NO FURTHER NEEDS AT THIS TIME.
--- NOTE | 2023-07-31 10:10 | OR ---
[facility] [address], [place] [address] Signed DATE OF OPERATION: 07/31/2023 SURGEON: Gerber Stevens MD PREOPERATIVE DIAGNOSES: 1. Mother with colonic polyps at age 72. 2. Maternal uncle with colon polyps in his 70s. 3. Maternal aunt with colon cancer in her 70s. 4. Internal hemorrhoids. 5. Weight loss. POSTOPERATIVE DIAGNOSES: 1. Tortuous sigmoid colon. 2. Minimal internal hemorrhoids. PROCEDURE: Colonoscopy without biopsy. ESTIMATED BLOOD LOSS: None. INDICATIONS: Janay is a 58-year-old female, asked to see me for a followup colonoscopy. We know her mother had colonic polyps at age 72. Maternal uncle had colon polyps in his 70s. Maternal aunt had colon cancer in her 70s. She has been doing fine with respect to her GI tract. I helped her with a colonoscopy in 2018 at the age of 52. She had some internal hemorrhoids. More recently, she has been on vitamins and she thinks that is affecting her bowel movements and causing her to lose a fair amount of weight. She has been working with her primary care provider in that regard. In the office, I gave Janay a brochure on colonoscopy. She understands the nature of the test. There is risk including, but not limited to gas bloating, crampy abdominal pain, bleeding, perforation requiring surgery, and missed diagnosis. We also reviewed the written instructions for the bowel prep line by line. She also understands the need for IV conscious sedation. An adult person will have to take her home afterwards. She had expressed understanding and wished to proceed. DESCRIPTION OF PROCEDURE: Janay was taken into our endoscopy suite and placed in the left lateral decubitus position. She was given 5 mg of Versed and 100 mcg of fentanyl to cover the case. A digital rectal exam was performed. There were no external hemorrhoids. She has good Electronically Signed By: GERBER STEVENS MD 07/31/23 1010 PATIENT NAME: JANAY ANDERSON OPERATIVE REPORT DATE OF : 65 REPORT #: [id number] PHYSICIAN: GERBER STEVENS MD PCP: RADHA CUBA PAC REPORT IS CONFIDENTIAL AND NOT TO BE RELEASED WITHOUT AUTHORIZATION [facility] [address], [place] [address] Signed sphincter tone. There were no masses. The adult colonoscope was introduced and advanced under direct visualization of camera. She has a tortuous sigmoid colon. It took a few minutes with some extra sedation in order to get through this area and up into the cecum itself. Her prep was quite excellent. We could easily see the appendiceal orifice and ileocecal valve. The scope was then slowly withdrawn. We took several pictures throughout for photodocumentation. She had no diverticulosis. There were no polyps. The rectum was unremarkable. Upon retroflexion of scope, she has [id number] internal hemorrhoid columns. After this, the gas was suctioned out, colonoscope removed. Janay tolerated the procedure quite well. RECOMMENDATIONS: Janay can follow up in 5 years for repeat screening colonoscopy. She will return to her primary care provider for ongoing evaluation of her weight loss. Gerber Stevens MD ALB/MODL /[id number] cc: MELISSA Carrera MD Patient Chart Copies: RADHA CUBA ANDREW L MD ~ Electronically Signed By: GERBER STEVENS MD 07/31/23 1010 PATIENT NAME: JANAY ANDERSON OPERATIVE REPORT DATE OF : 65 REPORT #: [id number] PHYSICIAN: GERBER STEVENS MD PCP: RADHA CUBA PAC REPORT IS CONFIDENTIAL AND NOT TO BE RELEASED WITHOUT AUTHORIZATION
[2023-07-31 10:23] VITALS: BP 128/72
--- NOTE | 2023-07-31 10:25 | NUR ---
PT ARRIVES TO DS UNIT FROM PACU VIA STRETCHER. PT IS RESTING W/EYES CLOSED, RESPIRATIONS EVEN AND UNLABORED, NO SIGNS OF DISTRESS. PT O2 PER PULSE OX IS >90% ON RA. PT IS DROWSY, BUT RESPONSIVE TO VERBAL STIMULI AT THIS TIME. PT REPORTS NO PAIN OR NAUSEA. PT PASSING GAS WITHOUT DIFFICULTY. BROUGHT TO ROOM FROM HALLWAY AND NOW SITTING AT BEDSIDE. ICE WATER WITHIN REACH WHEN READY. CALL LIGHT WITHIN REACH, NO FURTHER NEEDS AT THIS TIME.
[2023-07-31 11:17] VITALS: BP 121/77
== END 2023-07-31 11:20 | disposition home or self-care (01) ==
LOC: DS 08:17
PROVIDERS: ATTEND Colon & Rectal Surgery
PROC: 0DJD8ZZ Inspection of Lower Intestinal Tract, Via Natural or Artificial Opening Endoscopic (ICD-10-PCS; principal; 2023-07-31 09:45)
DX: K64.8 Other hemorrhoids (principal); K63.89 Other specified diseases of intestine; J45.909 Unspecified asthma, uncomplicated; E03.9 Hypothyroidism, unspecified; G43.909 Migraine, unspecified, not intractable, without status migrainosus; F32.9 Major depressive disorder, single episode, unspecified; J30.9 Allergic rhinitis, unspecified; E88.819 Insulin resistance, unspecified; Z83.719 Family history of colon polyps, unspecified; Z80.0 Family history of malignant neoplasm of digestive organs; Z79.899 Other long term (current) drug therapy; Z79.890 Hormone replacement therapy; Z88.8 Allergy status to other drugs, medicaments and biological substances; Z88.1 Allergy status to other antibiotic agents
CPT/HCPCS: J2250; J3010; J7121